=== PATIENT | female | born 1980 | race Caucasian/White ===

== ENCOUNTER 2017-07-12 10:59 | Emergency (ER) | payer OTHER ==
--- NOTE | 2017-07-13 07:50 | OBHP ---
Datetime: 07/12/2017 11:50 IP Adm Impression: , intrauterine ; No Active Labor; Intact Membranes IP Admit Plan: Observation/Evaluation Admit Comment, IP Provider: 37yo G [id number] IUP at 36w ([facility] in [facility]) BIBA after slipping while walking on street. Fell and hit her hands, knees and abdomen. She stated that it felt like a 'soft punch'. No SROM. no VB. +FM...came to check that baby was OK PMH: denies PSH: denies POBGYNH: x 1; no STD NKA PSoH: deneis smoking ETOH drugs A: IUP at 36w S/P fall / abd trauma / abraision to hand and knee PLAN: monitor FH. not in labor Offered prolongedn monitoring but she stated that she felt fine to go home. Labor instructions gi yuki. Follow up primary OB this/next week Pelvic Type - PN: Adequate Extremities - PN: Abnormal Abdomen - PN: Normal Neurologic - PN: Normal HEENT - PN: Normal General - PN: Normal FHR - Baseline A Provider: 135 Membranes, Provider: Intact Comments, ACOG Physical Exam: Left hand abrasion right knee abrasion Abd: no sign of trauma non tender Pool Provider: Negative Vital Signs Provider: Reviewed; Within Normal Limits IP Chief Complaint: Trauma/Fall NICHD Variability Prov Fetus A: Moderate 6-25bpm NICHD Accel Fetus A IP Provider: [id number] FHR Category Provider Fetus A: Category I NICHD Decel Fetus A IP Provider: None Dilatation, Provider: 0 Effacement, Provider: 0
[2017-07-13 11:50] VITALS: BP 101/65; PULSE 79; O2SAT 97
== END 2017-07-12 12:40 | disposition home or self-care (01) ==
LOC: H.EROB2 10:59
DX: O47.03 False labor before 37 completed weeks of gestation, third trimester (principal); Z3A.36 36 weeks gestation of pregnancy; Z04.3 Encounter for examination and observation following other accident